=== PATIENT | female | born 1960 | race Caucasian/White ===

== ENCOUNTER 2019-12-24 18:16 | Emergency (ER) | payer SELFPAY ==
[~2019-12-24] VITALS: Ht 175.3 cm; Wt 72.6 kg
[2019-12-24 18:30] VITALS: BP 137/87
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
--- NOTE | 2019-12-24 19:04 | NUR ---
ED Nurse Note: Pt went on CT accompanied by tech.
--- NOTE | 2019-12-24 19:13 | Diagnostic Imaging Report ---
Indications: Syncope Technique: Spiral acquisitions obtained through the brain. Angled axial and coronal 5 x 5 mm slices were reconstructed. Total dose length product 1088 mGycm. CTDI vol(s) 53 mGy. Dose reduction achieved using automated exposure control Comparison: None. Findings: There is very mild age-related cortical volume loss. Ventricles are normal for age. No acute intracranial hemorrhage or edema. No mass effect nor midline shift. Normal mai-white differentiation. Intact calvarium. Visualized orbits and sinuses are unremarkable. The mastoids are clear. Impression: Mild age-related cortical volume loss. Negative for acute intracranial bleed or mass effect This agrees with the preliminary interpretation provided overnight by [facility]erad[facility] service. The CT scanner at [facility] is accredited by the [employer] and the scans are performed using protocols designed to limit radiation exposure to as low as reasonably achievable to attain images of sufficient resolution adequate for diagnostic evaluation.
[2019-12-24 19:20] VITALS: BP 137/87
--- NOTE | 2019-12-24 19:20 | NUR ---
ED Nurse Note: While recieving report to resume care, noted pt has left, pt was discharged by previous nurse but left without paper work, d/c by Betty South RN.
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
== END 2019-12-24 19:20 | disposition home or self-care (01) ==
LOC: EMR 18:45
DX: R55 Syncope and collapse (principal); I10 Essential (primary) hypertension; V43.52XA Car driver injured in collision with other type car in traffic accident, initial encounter; Y92.411 Interstate highway as the place of occurrence of the external cause
CPT/HCPCS: 70450; 99284